=== PATIENT | male | born 1950 | race Caucasian/White ===

== ENCOUNTER 2020-03-04 00:30 | Observation (INO) ==
[2020-03-04] MEDS ORDERED: ACETAMINOPHEN 500 MG TAB PO STA (00:55)
[2020-03-04] MEDS ORDERED: SODIUM CHLORIDE 0.9% 1000ML 1,000 ML IV SCH (01:00)
--- NOTE | 2020-03-04 01:01 | Emergency Department Note ---
History of Present Illness General Chief complaint: Fever Stated complaint: FEVER Time Seen by Provider: 03/04/20 00:54 History of Present Illness Maximum Pain Intensity: 8 This 69-year-old retiree coming from home presents to the ER complaining of fever and abdominal pain for the past day Location: Generalized Quality: Feverish Severity: Moderate Duration: Today Timing: Today Context: was concerned and called EMS Modifying factors: better with Tylenol; worse with activity Patient states he retired and lives at home. No recent travel. 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 Patient denies chest pain, dyspnea, cough, sore throat, loss of taste, loss of smell, vomiting, diarrhea, urinary symptoms. No prior abdominal surgeries. Home Medications Home Medications Medication Instructions Recorded Confirmed Type aripiprazole 2 mg PO DAILY 03/04/20 03/04/20 History atorvastatin [Lipitor] 40 mg PO DAILY 03/04/20 03/04/20 History clonazepam 2 mg PO BID 03/04/20 03/04/20 History donepezil 10 mg PO DAILY 03/04/20 03/04/20 History famotidine 20 mg PO DAILY 03/04/20 03/04/20 History omeprazole 40 mg PO DAILYBB 03/04/20 03/04/20 History quetiapine [Seroquel] 200 mg PO HS 03/04/20 03/04/20 History tamsulosin [Flomax] 0.4 mg PO DAILY 03/04/20 03/04/20 History venlafaxine [Effexor XR] 300 mg PO QAM 03/04/20 03/04/20 History Allergies Allergy/AdvReac Type Severity Reaction Status Date / Time aspirin AdvReac Unknown CONTRAINDICATED Verified 03/04/20 02:45 DUE TO HEMOPHILIA DISORDER Past Med/Surg History Medical History GERD (gastroesophageal reflux disease) Skin cancer Surgical History No pertinent past surgical history Social History Smoking Status: Never smoker Second Hand Exposure: No; Do You Dip or Chew Tobacco: No; Tobacco Cessation Education Requested by Patient: No Hx Alcohol Use: No Hx Substance Use: No Preferred Language: Nepali Multimedia Designer Required: No Beliefs That Will Affect Care: None Current Living Situation: Spouse Other Information That Helps Us Care for You: No Feels Safe at Home: Yes Safety Concerns: Feels Safe At This Time Assistive Devices: Denture - Upper and Denture - Lower Review of Systems A total of 10 systems reviewed and were otherwise negative Physical Exam Vital Signs Vital Signs - 24 hr 03/04/20 00:36 03/04/20 01:28 03/04/20 01:30 Temperature 39.2 C H Temperature Source Oral Pulse Rate 112 H 110 H Pulse Rate from SpO2 Sensor 116 H 109 H Pulse Rhythm Regular Pulse Strength Normal Respiratory Rate 18 Respiratory Effort / Characteristics Non-Labored Respiratory Depth Normal Respiratory Pattern Regular Blood Pressure 122/79 139/78 102/74 Blood Pressure Mean 93 115 87 Blood Pressure Position Lying Pulse Oximetry 97 97 96 Oxygen Delivery Method Room Air Room Air Room Air Sepsis Recent Fever Within 48 Hours Yes Sepsis New/Unexplained Change in Mental Status Yes Sepsis Action Taken by Nursing Physician Notified 03/04/20 02:00 03/04/20 02:41 03/04/20 03:00 Temperature 37.2 C Temperature Source Pulse Rate 96 H 88 Pulse Rate from SpO2 Sensor 100 H 99 H 88 Pulse Rhythm Pulse Strength Respiratory Rate Respiratory Effort / Characteristics Respiratory Depth Respiratory Pattern Blood Pressure 121/64 124/72 101/66 Blood Pressure Mean 71 81 73 Blood Pressure Position Pulse Oximetry 96 92 91 Oxygen Delivery Method Room Air Room Air Sepsis Recent Fever Within 48 Hours Sepsis New/Unexplained Change in Mental Status Sepsis Action Taken by Nursing 03/04/20 03:30 03/04/20 04:00 03/04/20 04:30 Temperature Temperature Source Pulse Rate 88 79 Pulse Rate from SpO2 Sensor 89 94 H 80 Pulse Rhythm Pulse Strength Respiratory Rate Respiratory Effort / Characteristics Respiratory Depth Respiratory Pattern Blood Pressure 109/71 105/68 107/71 Blood Pressure Mean 87 91 82 Blood Pressure Position Pulse Oximetry 93 94 95 Oxygen Delivery Method Room Air Room Air Room Air Sepsis Recent Fever Within 48 Hours Sepsis New/Unexplained Change in Mental Status Sepsis Action Taken by Nursing 03/04/20 04:50 03/04/20 05:00 03/04/20 05:01 Temperature Temperature Source Pulse Rate 75 72 75 Pulse Rate from SpO2 Sensor 75 72 77 Pulse Rhythm Pulse Strength Respiratory Rate 12 15 19 Respiratory Effort / Characteristics Respiratory Depth Respiratory Pattern Blood Pressure 107/62 106/69 Blood Pressure Mean 69 75 Blood Pressure Position Pulse Oximetry 96 93 93 Oxygen Delivery Method Room Air Room Air Sepsis Recent Fever Within 48 Hours Sepsis New/Unexplained Change in Mental Status Sepsis Action Taken by Nursing VITALS: Vitals are noted on the nurse's note and reviewed by myself. Vital signs febrile. GENERAL: White male mildly ill-appearing, in no acute distress, nondiaphoretic, well-developed well-nourished. SKIN: The skin was without rashes, erythema, edema, or bruising. There is no tenting of the skin. Capillary reflex less than 2 seconds. HEAD: Normocephalic atraumatic. EARS: External auditory canals clear, tympanic membranes pearly lee without erythema or effusion bilaterally. EYES: Pupils equal round and reactive to light and accommodation. Conjunctivae without injection, sclerae without icterus. Extraocular movements intact. NOSE: Patent, turbinates without inflammation or discharge. No sinus tenderness. MOUTH: Mucous membranes mildly dry. Pharynx without erythema or exudate. Uvula midline. Airway patent. Tongue does not deviate. NECK: Supple without nuchal rigidity. No lymphadenopathy. No thyromegaly. Cervical spine is nontender. No JVD. HEART: Regular rate and rhythm LUNGS: Clear to auscultation bilaterally without wheezes, rales or rhonchi. No retractions or accessory muscle use. ABDOMEN: Positive bowel sounds x 4. Normal tympanic percussion. Soft, tender to palpation right lower quadrant, without masses or organomegaly. Chua sign negative. No guarding or rebound tenderness. No CVA tenderness MUSCULOSKELETAL: No muscle atrophy, erythema, or edema noted. NEURO: Patient was alert and oriented to person place and time. Normal sensation to light and sharp touch. No focal neurological deficits. Course Administered Medications Acetaminophen (Acetaminophen 325 Mg Tab) 650 mg PO Q4H PRN PRN Reason: pain/fever Stop: 04/03/20 06:32 Last Admin: 03/04/20 20:21 Dose: 650 mg Documented by: [id number] Aripiprazole (Aripiprazole 1 Mg/Ml Oral Soln 150 Ml Btl) 2 mg PO DAILY [facility] Stop: 04/03/20 08:59 Last Admin: 03/04/20 08:35 Dose: 2 mg Documented by: [id number] Atorvastatin Calcium (Atorvastatin 40 Mg Tab) 40 mg PO DAILY [facility] Stop: 04/03/20 08:59 Last Admin: 03/04/20 08:34 Dose: 40 mg Documented by: [id number] Clonazepam (Clonazepam 1 Mg Tab) 2 mg PO BID TIM Stop: 04/03/20 08:59 Last Admin: 03/04/20 21:14 Dose: 2 mg Documented by: [id number] Admin: 03/04/20 08:34 Dose: 2 mg Documented by: [id number] Famotidine (Famotidine 20 Mg Tab) 20 mg PO DAILY TIM Stop: 04/03/20 08:59 Last Admin: 03/04/20 08:35 Dose: 20 mg Documented by: [id number] Fluticasone Propionate (Fluticasone Propionate Na Spr 16 Gm Btl) 2 sprays NA DAILY TIM Stop: 04/03/20 19:14 Last Admin: 03/04/20 21:15 Dose: 2 sprays Documented by: [id number] Pseudoephedrine HCl (Pseudoephedrine Hcl 30 Mg Tab) 60 mg PO Q6H TIM Stop: 03/06/20 19:59 Last Admin: 03/04/20 21:15 Dose: 60 mg Documented by: [id number] Quetiapine Fumarate (Quetiapine Fumarate 200 Mg Tab) 200 mg PO HS TIM Stop: 04/03/20 20:59 Last Admin: 03/04/20 21:14 Dose: 200 mg Documented by: [id number] Tamsulosin HCl (Tamsulosin Hcl 0.4 Mg Cap) 0.4 mg PO DAILY TIM Stop: 04/03/20 08:59 Last Admin: 03/04/20 08:35 Dose: 0.4 mg Documented by: [id number] Venlafaxine HCl (Venlafaxine Hcl Xr 150 Mg Capxr) 300 mg PO QAM TIM Stop: 04/03/20 08:59 Last Admin: 03/04/20 08:34 Dose: 300 mg Documented by: [id number] Discontinued Medications Acetaminophen (Acetaminophen 500 Mg Tab) 1,000 mg PO NOW STA Stop: 03/04/20 00:56 Last Admin: 03/04/20 01:21 Dose: 1,000 mg Documented by: [id number] Sodium Chloride (Nss 1000ml) 1,000 mls @ 999 mls/hr IV .Q1H1M TIM Stop: 03/04/20 02:00 Last Infusion: 03/04/20 02:20 Dose: 0 mls/hr Documented by: [id number] Admin: 03/04/20 01:21 Dose: 999 mls/hr Documented by: [id number] Piperacillin Sod/Tazobactam Sod (Zosyn) 4.5 gm in 120 mls @ 240 mls/hr IV NOW ONE Stop: 03/04/20 03:45 Last Infusion: 03/04/20 04:23 Dose: 0 mls/hr Documented by: [id number] Admin: 03/04/20 03:39 Dose: 240 mls/hr Documented by: [id number] Sodium Chloride (Nss 1000ml) 1,000 mls @ 999 mls/hr IV .Q1H1M ONE Stop: 03/04/20 04:16 Last Infusion: 03/04/20 04:36 Dose: 0 mls/hr Documented by: [id number] Admin: 03/04/20 03:38 Dose: 999 mls/hr Documented by: [id number] Magnesium Sulfate/Dextrose (Magnesium Sulfate / D5w) 1 gm in 100 mls @ 100 mls/hr IV NOW STA Stop: 03/04/20 04:16 Last Infusion: 03/04/20 04:36 Dose: 0 mls/hr Documented by: [id number] Admin: 03/04/20 03:38 Dose: 100 mls/hr Documented by: [id number] Calcium Gluconate 1,000 mg/ (Sodium Chloride) 60 mls @ 240 mls/hr IV NOW STA Stop: 03/04/20 04:46 Last Infusion: 03/04/20 05:21 Dose: 0 mls/hr Documented by: [id number] Admin: 03/04/20 05:08 Dose: 240 mls/hr Documented by: [id number] Parenteral Electrolytes (Normosol-R) 1,000 mls @ 75 mls/hr IV .[id number] ONE Stop: 03/04/20 19:52 Last Infusion: 03/04/20 22:05 Dose: 0 mls/hr Documented by: [id number] Admin: 03/04/20 08:34 Dose: 75 mls/hr Documented by: [id number] Ioversol (Optiray 320 125ml) 93 ml IV ONCE ONE Stop: 03/04/20 02:07 Last Admin: 03/04/20 02:08 Dose: 1 ml Documented by: [id number] Medical Decision Making Medical Records Attestation: I reviewed the patient's medical records. Home Medications Current Medication List: was personally reviewed by me Laboratory Data Attestation: I reviewed the patient's lab results. Result diagrams: 03/04/20 07:43 03/04/20 01:00 Lab Results 03/04/20 03/04/20 03/04/20 Range/Units 01:00 01:00 01:00 WBC 14.85 H (4.8-10.8) K/uL RBC 5.08 (4.7-6.1) M/uL Hgb 12.6 L (14.0-18.0) g/dL Hct 40.4 L (42-52) % MCV 79.5 L (80-100) fL MCH 24.8 L (25-34) pg MCHC 31.2 L (32-36) g/dL RDW Std Deviation 45.6 (36.4-46.3) fL RDW Coeff of Tavo 15.7 H (11.5-14.5) % Plt Count 198 (130-400) K/uL MPV 11.4 H (7.4-10.4) fL Immature Gran % (Auto) 0.3 % Neut % (Auto) 80.9 % Lymph % (Auto) 12.7 % Rusk % (Auto) 5.8 % Eos % (Auto) 0.2 % Baso % (Auto) 0.1 % Neut # (Auto) 12.01 H (1.4-6.5) K/uL Lymph # (Auto) 1.88 (1.2-3.4) K/uL Rusk # (Auto) 0.86 H (0.11-0.59) K/uL Eos # (Auto) 0.03 (0-0.5) K/uL Baso # (Auto) 0.02 (0-0.2) K/uL Immature Gran # (Auto) 0.05 H (0.00-0.02) K/uL PT 10.7 (9.0-12.0) Seconds INR 1.0 (0.9-1.1) APTT 43.3 H (21.0-31.0) Seconds PTT Ratio 1.6 Sodium 138 (136-145) mmol/L Potassium 4.0 (3.5-5.1) mmol/L Chloride 105 (98-107) mmol/L Carbon Dioxide 27 (21-32) mmol/L Anion Gap 6.0 (3-11) BUN 10 (7-18) mg/dl Creatinine 1.33 (0.6-1.4) mg/dl Est Cr Clr Drug Dosing 59.7 ml/min Est GFR ( Amer) 63.2 Est GFR (Non-Af Amer) 54.5 BUN/Creatinine Ratio 7.6 L (10-20) Glucose 84 (70-99) mg/dl Lactate (0.4-2.0) mmol/L Calcium 8.2 L (8.5-10.1) mg/dl Magnesium 1.7 L (1.8-2.4) mg/dl Total Bilirubin 0.6 (0.2-1) mg/dl AST 17 (15-37) U/L ALT 21 (12-78) U/L Alkaline Phosphatase 132 H (45-117) U/L Total Creatine Kinase 83 (39-308) U/L Troponin I < 0.015 (0-0.045) ng/ml Total Protein 7.1 (6.4-8.2) gm/dl Albumin 3.5 (3.4-5.0) gm/dl Globulin 3.6 (2.5-4.0) gm/dl Albumin/Globulin Ratio 1.0 (0.9-2) Procalcitonin (0-0.5) ng/ml Urine Color Urine Appearance (Clear) Urine pH (4.5-7.5) Ur Specific Bruno (1.000-1.030) Urine Protein (Negative) Urine Glucose (UA) (Negative) Urine Ketones (Negative) Urine Blood (Negative) Urine Nitrite (Negative) Urine Bilirubin (Negative) Urine Urobilinogen (Negative) Ur Leukocyte Esterase (Negative) Lyme Disease IgG Ab (Negative) Lyme Disease IgM Ab (Negative) COVID-19 Eval Order COVID-19 PCR (Negative) Influ A Molecular Assay (Negative) Influ B Molecular Assay (Negative) 03/04/20 03/04/20 03/04/20 Range/Units 01:00 01:06 01:06 WBC (4.8-10.8) K/uL RBC (4.7-6.1) M/uL Hgb (14.0-18.0) g/dL Hct (42-52) % MCV (80-100) fL MCH (25-34) pg MCHC (32-36) g/dL RDW Std Deviation (36.4-46.3) fL RDW Coeff of Tavo (11.5-14.5) % Plt Count (130-400) K/uL MPV (7.4-10.4) fL Immature Gran % (Auto) % Neut % (Auto) % Lymph % (Auto) % Rusk % (Auto) % Eos % (Auto) % Baso % (Auto) % Neut # (Auto) (1.4-6.5) K/uL Lymph # (Auto) (1.2-3.4) K/uL Rusk # (Auto) (0.11-0.59) K/uL Eos # (Auto) (0-0.5) K/uL Baso # (Auto) (0-0.2) K/uL Immature Gran # (Auto) (0.00-0.02) K/uL PT (9.0-12.0) Seconds INR (0.9-1.1) APTT (21.0-31.0) Seconds PTT Ratio Sodium (136-145) mmol/L Potassium (3.5-5.1) mmol/L Chloride (98-107) mmol/L Carbon Dioxide (21-32) mmol/L Anion Gap (3-11) BUN (7-18) mg/dl Creatinine (0.6-1.4) mg/dl Est Cr Clr Drug Dosing ml/min Est GFR ( Amer) Est GFR (Non-Af Amer) BUN/Creatinine Ratio (10-20) Glucose (70-99) mg/dl Lactate (0.4-2.0) mmol/L Calcium (8.5-10.1) mg/dl Magnesium (1.8-2.4) mg/dl Total Bilirubin (0.2-1) mg/dl AST (15-37) U/L ALT (12-78) U/L Alkaline Phosphatase (45-117) U/L Total Creatine Kinase (39-308) U/L Troponin I (0-0.045) ng/ml Total Protein (6.4-8.2) gm/dl Albumin (3.4-5.0) gm/dl Globulin (2.5-4.0) gm/dl Albumin/Globulin Ratio (0.9-2) Procalcitonin 0.21 (0-0.5) ng/ml Urine Color Urine Appearance (Clear) Urine pH (4.5-7.5) Ur Specific Bruno (1.000-1.030) Urine Protein (Negative) Urine Glucose (UA) (Negative) Urine Ketones (Negative) Urine Blood (Negative) Urine Nitrite (Negative) Urine Bilirubin (Negative) Urine Urobilinogen (Negative) Ur Leukocyte Esterase (Negative) Lyme Disease IgG Ab Negative (Negative) Lyme Disease IgM Ab Negative (Negative) COVID-19 Eval Order Covid19 Done at [facility] COVID-19 PCR (Negative) Influ A Molecular Assay Negative (Negative) Influ B Molecular Assay Negative (Negative) 03/04/20 03/04/20 03/04/20 Range/Units 01:06 01:25 02:46 WBC (4.8-10.8) K/uL RBC (4.7-6.1) M/uL Hgb (14.0-18.0) g/dL Hct (42-52) % MCV (80-100) fL MCH (25-34) pg MCHC (32-36) g/dL RDW Std Deviation (36.4-46.3) fL RDW Coeff of Tavo (11.5-14.5) % Plt Count (130-400) K/uL MPV (7.4-10.4) fL Immature Gran % (Auto) % Neut % (Auto) % Lymph % (Auto) % Rusk % (Auto) % Eos % (Auto) % Baso % (Auto) % Neut # (Auto) (1.4-6.5) K/uL Lymph # (Auto) (1.2-3.4) K/uL Rusk # (Auto) (0.11-0.59) K/uL Eos # (Auto) (0-0.5) K/uL Baso # (Auto) (0-0.2) K/uL Immature Gran # (Auto) (0.00-0.02) K/uL PT (9.0-12.0) Seconds INR (0.9-1.1) APTT (21.0-31.0) Seconds PTT Ratio Sodium (136-145) mmol/L Potassium (3.5-5.1) mmol/L Chloride (98-107) mmol/L Carbon Dioxide (21-32) mmol/L Anion Gap (3-11) BUN (7-18) mg/dl Creatinine (0.6-1.4) mg/dl Est Cr Clr Drug Dosing ml/min Est GFR ( Amer) Est GFR (Non-Af Amer) BUN/Creatinine Ratio (10-20) Glucose (70-99) mg/dl Lactate 1.7 (0.4-2.0) mmol/L Calcium (8.5-10.1) mg/dl Magnesium (1.8-2.4) mg/dl Total Bilirubin (0.2-1) mg/dl AST (15-37) U/L ALT (12-78) U/L Alkaline Phosphatase (45-117) U/L Total Creatine Kinase (39-308) U/L Troponin I (0-0.045) ng/ml Total Protein (6.4-8.2) gm/dl Albumin (3.4-5.0) gm/dl Globulin (2.5-4.0) gm/dl Albumin/Globulin Ratio (0.9-2) Procalcitonin (0-0.5) ng/ml Urine Color Yellow Urine Appearance Clear (Clear) Urine pH 5.0 (4.5-7.5) Ur Specific Bruno 1.026 (1.000-1.030) Urine Protein Negative (Negative) Urine Glucose (UA) 2+ H (Negative) Urine Ketones Trace H (Negative) Urine Blood Negative (Negative) Urine Nitrite Negative (Negative) Urine Bilirubin Negative (Negative) Urine Urobilinogen Negative (Negative) Ur Leukocyte Esterase Negative (Negative) Lyme Disease IgG Ab (Negative) Lyme Disease IgM Ab (Negative) COVID-19 Eval Order COVID-19 PCR NEGATIVE (Negative) Influ A Molecular Assay (Negative) Influ B Molecular Assay (Negative) Imaging Data Attestation: I personally reviewed and interpreted this imaging study as follows: MDM Narrative Prior records/ancillary studies reviewed. Triage Nursing notes reviewed. Additional history obtained from nursing. The patient's history was concerning for fever and abdominal pain. Differential diagnosis: Etiologies such as sepsis, UTI, pneumonia, metabolic, electrolyte abnormal ities, cardiac sources, intracerebral event, toxicologic, neurologic, as well as others were entertained. Physical examination: As above. Pertinent findings were fever. Vital signs reviewed and revealed febrile. ER treatment provided: IV fluid resuscitation with Normal saline solution, 1000 mL bolus. Blood and urine cultures Antibiotics: Zosyn Magnesium, Tylenol An order was placed for continuous cardiac monitoring. The monitor shows a rate of 60-1 20 with a sinus rhythm. On reassessment the patient vital signs improved. Diagnostics interpretation by me: ECG: Normal sinus, normal intervals, no acute ST-T wave changes. Impression normal sinus rhythm interpreted myself EKG ordered for sepsis I think arrhythmia is unlikely. EKG shows normal sinus rhythm with no interval abnormalities such as QT prolongation or WPW. There are no findings to suggest Brugada syndrome. Cardiac monitoring in the emergency department reveals no tachycardic or bradycardic dysrhythmia. Hypertrophic cardiomyopathy was considered but there are no clear historical elements pointing toward this. EKG is not suggestive. The QRS voltage is not extremely large and there are no suggestive Q waves. The labs revealed leukocytosis on CBC. Chemistry panel revealed hypomagnesia and this was replaced. LFTs revealed. Cardiac enzymes were negative. Serum Lactate measurement was 1.7 Blood and urine cultures are pending. Negative flu, negative Covid Imaging studies: Chest xray revealed with no acute consolidation, pneumothorax or free air mitral rotation CT ABDOMEN & PELVIS With Contrast: Liver, spleen, pancreas and gallbladder appear normal. Stomach, small bowel, colon and appendix appear normal. Adrenals kidneys ureters and bladder appear normal. Prostate appears normal. Vascular structures appear normal. There is no free peritoneal air or fluid. Impression: No acute findings Radiologist: Ravinder Millan MD Consultation: A consultation was placed with Dr Golden, hospitalist. The case was discussed and diagnostics were reviewed. The patient was evaluated in the ER for further treatment. Exam and history seem consistent with fever of unclear etiology. Patient was st arted on antibiotics. Medicine was consulted. Patient will be admitted. The chart was completed utilizing Inbox voice recognition software. Grammatical errors, random word insertions, pronoun errors, and incomplete sentences are an occassional consequence of this system due to software limitations, ambient noise, and hardware issues. Any formal questions or concerns about the content, text, or information contained within the body of this dictation should be directly addressed to the physician hygiene assistant for clarification. Impression & Plan Sepsis Discharge Plan Visit Data Chief Complaint: Fever Stated Complaint: FEVER ED Provider: Yesenia Velasco ED Midlevel Provider: Cherelle Campbell Discharge Problem: Sepsis Patient Disposition: Admitted As Inpatient Condition: Good Discharge Instructions Interventions: ED Discharge Assessment Last Done: 03/04/20 06:08 Discharge Problem: Sepsis Qualifiers: Sepsis type: sepsis due to unspecified organism Sepsis acute organ dysfunction status: unspecified Qualified Code(s): A41.9 - Sepsis, unspecified organism
[2020-03-04 01:45] LABS: Basophils # (auto) 0.02 K/uL (0-0.2); Basophils % (auto) 0.1 %; Eosinophils # (auto) 0.03 K/uL (0-0.5); Eosinophils % (auto) 0.2 %; Hematocrit (blood only) 40.4 % (42-52); Hemoglobin 12.6 g/dL (14.0-18.0); Immature Granulocytes # (auto) 0.05 K/uL (0.00-0.02); Immature Granulocytes % (auto) 0.3 %; Lymphocytes # (auto) 1.88 K/uL (1.2-3.4); Lymphocytes % (auto) 12.7 %; Mean Corpuscular Hemoglobin 24.8 pg (25-34); Mean Corpuscular Hgb Conc 31.2 g/dL (32-36); Mean Corpuscular Volume 79.5 fL (80-100); Mean Platelet Volume 11.4 fL (7.4-10.4); Monocytes # (auto) 0.86 K/uL (0.11-0.59); Monocytes % (auto) 5.8 %; Neutrophils # (auto) 12.01 K/uL (1.4-6.5); Neutrophils % (auto) 80.9 %; Platelet Count 198 K/uL (130-400); RDW Coefficient of Variation 15.7 % (11.5-14.5); RDW Standard Deviation 45.6 fL (36.4-46.3); Red Blood Count 5.08 M/uL (4.7-6.1); White Blood Count 14.85 K/uL (4.8-10.8)
[2020-03-04 01:48] LABS: Appearance Urine Clear (Clear); Bilirubin Urine Negative (Negative); Blood Urine Negative (Negative); Color Urine Yellow; Glucose Urine UA 2+ (Negative); Ketones Urine Trace (Negative); Leukocyte Esterase Urine Negative (Negative); Nitrite Urine Negative (Negative); Protein Urine Negative (Negative); Specific Gravity Urine 1.026 (1.000-1.030); Urobilinogen Urine Negative (Negative)
[2020-03-04 01:56] LABS: Partial Thromboplastin Ratio 1.6; Partial Thromboplastin Time 43.3 Seconds (21.0-31.0); Prothrombin Time 10.7 Seconds (9.0-12.0)
[2020-03-04 02:03] LABS: Alanine Aminotransferase 21 U/L (12-78); Albumin Level 3.5 gm/dl (3.4-5.0); Aspartate Aminotransferase 17 U/L (15-37); BUN Creatinine Ratio 7.6 (10-20); Blood Urea Nitrogen 10 mg/dl (7-18); Calcium 8.2 mg/dl (8.5-10.1); Carbon Dioxide 27 mmol/L (21-32); Chloride 105 mmol/L (98-107); Creatinine Clr Calc Pharmacy 59.7 ml/min; Est GFR (African American) 63.2; Est GFR (Non-African American) 54.5; Glucose 84 mg/dl (70-99); Magnesium 1.7 mg/dl (1.8-2.4); Sodium 138 mmol/L (136-145)
[2020-03-04] MEDS ORDERED: OPTIRAY 320 125ml IV ONE (02:06)
[2020-03-04 02:08] LABS: Alkaline Phosphatase 132 U/L (45-117); Bilirubin,Total 0.6 mg/dl (0.2-1); Globulin 3.6 gm/dl (2.5-4.0); Total Protein 7.1 gm/dl (6.4-8.2); Troponin I < 0.015 ng/ml (0-0.045)
[2020-03-04 02:12] LABS: Influenza A virus by PCR Negative (Negative); Influenza B virus by PCR Negative (Negative)
[2020-03-04] MEDS ORDERED: PIPERACILL/TAZOBAC CONSULT ACTIVE PRN (03:16)
[2020-03-04] MEDS ORDERED: SODIUM CHLORIDE 0.9% 1000ML 1,000 ML IV ONE (03:16)
[2020-03-04] MEDS ORDERED: PIPERACILLIN/TAZOBACTAM 4.5 GM/120 ML BAG IV ONE (03:16)
[2020-03-04] MEDS ORDERED: MAGNESIUM SULFATE / D5W 1 GM/100 ML BAG IV STA (03:17)
[2020-03-04 03:42] LABS: Creatine Kinase 83 U/L (39-308)
--- NOTE | 2020-03-04 03:43 | Emergency Department Note ---
ED Visit Note I saw this patient in conjunction with Nargis Campbell PA-C. I agree with her decision making and treatment plan. . : Sepsis Qualifiers: Sepsis type: sepsis due to unspecified organism Sepsis acute organ dysfunction status: unspecified Qualified Code(s): A41.9 - Sepsis, unspecified organism
[2020-03-04 04:27] LABS: Procalcitonin 0.21 ng/ml (0-0.5)
[2020-03-04] MEDS ORDERED: CALCIUM GLUCONATE 10% 1,000 MG in SODIUM CHLORIDE 0.9% 50 ML IV STA (04:32)
[2020-03-04 04:34] LABS: Lyme Ab IgG w/WB Rflx Negative (Negative); Lyme Ab IgM w/WB Rflx Negative (Negative)
--- NOTE | 2020-03-04 04:43 | History & Physical Report ---
Date of Service March 04, 2020 Assessment & Plan (1) Sepsis: Admission and Anticipated Discharge Date Admission Date: Rule out C. difficile diarrhea as source given recent antibiotic course for cat scratch injury New onset anemia ? 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 difficile Oral vancomycin if stool C. difficile positive IVF Anemia work-up, transfuse PRBC if hemoglobin less than 7 and or for symptomatic anemia (Patient requesting providers to contact [facility] hemophilia clinic for any hematologic concerns per patient. Dr. Gautam/Ms. Jane Ruiz, RN thru [phone].) Check hemoglobin A1c PT OT eval DVT prophylaxis. SCDs Re: Hemophilia A Full code as per Patient requesting updates providers. [facility], contact #[phone]. Text document was generated using [email or web address] voice recognition software. It may contain grammatical or spelling errors. Kindly contact undersigned for clarification of any documentation item in question. History of Present Illness Chief Complaint: Confusion, nausea vomiting diarrhea as per records Primary Care Provider: Hernandez Pritchard PA-C History obtained from patient, family, and records. Patient is a reliable historian. Medical history significant for hypertension, hyperlipidemia, hemophilia A, hx HCV as per records, dementia, BPH status post surgery, skin cancer status post surgery, past tobacco abuse. Patient seen at [facility] ER last week for cat scratches sustained after patient attempted to break up a fight among their pet cats as per account. Puncture wounds and bruising noted on patient's extremities as per . Patient had cat bite injury as per ER documentation which patient disputes. She insists patient injury was solely cat scratches. Patient prescribed Augmentin course. Yesterday patient had watery diarrhea symptoms associated with nausea, vomiting. Patient noted to be febrile and little sleepy upon patient's return to home from work. Transient disorientation which slowly improved as per . Achy headache symptoms. Usual clear prostatic discharge for a few months now as per patient . Patient denies black/bloody stools, joint swelling. At the ER, patient received Zosyn for sepsis. Medical History as above Surgical History : Urologic procedures, lymph node biopsy, skin cancer surgery with graft reconstruction, dental surgery Family History : Hemophilia, prostate cancer, stomach cancer Personal/Social history : Past tobacco abuse, no EtOH intake, retired from insurance work Allergies Allergy/AdvReac Type Severity Reaction Status Date / Time aspirin AdvReac Unknown CONTRAINDICATED Verified 03/04/20 02:45 DUE TO HEMOPHILIA DISORDER Home Medications Home Medications Medication Instructions Recorded Confirmed Type aripiprazole 2 mg PO DAILY 03/04/20 03/04/20 History atorvastatin [Lipitor] 40 mg PO DAILY 03/04/20 03/04/20 History clonazepam 2 mg PO BID 03/04/20 03/04/20 History donepezil 10 mg PO DAILY 03/04/20 03/04/20 History famotidine 20 mg PO DAILY 03/04/20 03/04/20 History omeprazole 40 mg PO DAILYBB 03/04/20 03/04/20 History quetiapine [Seroquel] 200 mg PO HS 03/04/20 03/04/20 History tamsulosin [Flomax] 0.4 mg PO DAILY 03/04/20 03/04/20 History venlafaxine [Effexor XR] 300 mg PO QAM 03/04/20 03/04/20 History Past Med/Surg History Medical History GERD (gastroesophageal reflux disease) Skin cancer Surgical History No pertinent past surgical history Social History Smoking Status: Never smoker Second Hand Exposure: No; Do You Dip or Chew Tobacco: No; Tobacco Cessation Education Requested by Patient: No Hx Alcohol Use: No Hx Substance Use: No Preferred Language: Persian 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 Beliefs That Will Affect Care: None Current Living Situation: Spouse Other Information That Helps Us Care for You: No Feels Safe at Home: Yes Safety Concerns: Feels Safe At This Time Assistive Devices: Denture - Upper and Denture - Lower Review of Systems Review of Systems: As per HPI, all 10 systems reviewed, all other ROS negative Physical Exam Physical Exam: GENERAL: Pleasant, comfortable, no respiratory distress SKIN: Pallor, warm, ecchymosis on the extremities HEENT: Sparse hair, pale palpebral conjunctivae, no ptosis, dry buccal mucosa NECK : Supple, no tenderness CHEST : CTA, no tenderness HEART : RRR, no obvious murmurs ABDOMEN: Some distention, nontender EXTREMITIES : No LE swelling/tenderness, no other conspicuous deformities noted NEUROLOGIC : Coherent, no facial asymmetry, no other gross focality Results & Data Results & Data ([facility]) Vital Signs (Past 12 Hours) Vital Signs Temp Pulse Resp BP Pulse Ox 03/04/20 03:30 88 109/71 93 03/04/20 03:00 88 101/66 91 03/04/20 02:41 37.2 C 96 H 124/72 92 03/04/20 02:00 121/64 96 03/04/20 01:30 110 H 102/74 96 03/04/20 01:28 139/78 97 03/04/20 00:36 39.2 C H 112 H 18 122/79 97 Laboratory Results Laboratory Results WBC 14.85 K/uL (4.8-10.8) H 03/04/20 01:00 RBC 5.08 M/uL (4.7-6.1) 03/04/20 01:00 Hgb 12.6 g/dL (14.0-18.0) L 03/04/20 01:00 Hct 40.4 % (42-52) L 03/04/20 01:00 MCV 79.5 fL (80-100) L 03/04/20 01:00 MCH 24.8 pg (25-34) L 03/04/20 01:00 MCHC 31.2 g/dL (32-36) L 03/04/20 01:00 RDW Std Deviation 45.6 fL (36.4-46.3) 03/04/20 01:00 RDW Coeff of Tavo 15.7 % (11.5-14.5) H 03/04/20 01:00 Plt Count 198 K/uL (130-400) 03/04/20 01:00 MPV 11.4 fL (7.4-10.4) H 03/04/20 01:00 Immature Gran % (Auto) 0.3 % 03/04/20 01:00 Neut % (Auto) 80.9 % 03/04/20 01:00 Lymph % (Auto) 12.7 % 03/04/20 01:00 [place] % (Auto) 5.8 % 03/04/20 01:00 Eos % (Auto) 0.2 % 03/04/20 01:00 Baso % (Auto) 0.1 % 03/04/20 01:00 Neut # (Auto) 12.01 K/uL (1.4-6.5) H 03/04/20 01:00 Lymph # (Auto) 1.88 K/uL (1.2-3.4) 03/04/20 01:00 [place] # (Auto) 0.86 K/uL (0.11-0.59) H 03/04/20 01:00 Eos # (Auto) 0.03 K/uL (0-0.5) 03/04/20 01:00 Baso # (Auto) 0.02 K/uL (0-0.2) 03/04/20 01:00 Immature Gran # (Auto) 0.05 K/uL (0.00-0.02) H 03/04/20 01:00 PT 10.7 Seconds (9.0-12.0) 03/04/20 01:00 INR 1.0 (0.9-1.1) 03/04/20 01:00 APTT 43.3 Seconds (21.0-31.0) H 03/04/20 01:00 PTT Ratio 1.6 03/04/20 01:00 Sodium 138 mmol/L (136-145) 03/04/20 01:00 Potassium 4.0 mmol/L (3.5-5.1) 03/04/20 01:00 Chloride 105 mmol/L (98-107) 03/04/20 01:00 Carbon Dioxide 27 mmol/L (21-32) 03/04/20 01:00 Anion Gap 6.0 (3-11) 03/04/20 01:00 BUN 10 mg/dl (7-18) 03/04/20 01:00 Creatinine 1.33 mg/dl (0.6-1.4) 03/04/20 01:00 Est Cr Clr Drug Dosing 59.7 ml/min 03/04/20 01:00 Est GFR ( Amer) 63.2 03/04/20 01:00 Est GFR (Non-Af Amer) 54.5 03/04/20 01:00 BUN/Creatinine Ratio 7.6 (10-20) L 03/04/20 01:00 Glucose 84 mg/dl (70-99) 03/04/20 01:00 Lactate 1.7 mmol/L (0.4-2.0) 03/04/20 02:46 Calcium 8.2 mg/dl (8.5-10.1) L 03/04/20 01:00 Magnesium 1.7 mg/dl (1.8-2.4) L 03/04/20 01:00 Total Bilirubin 0.6 mg/dl (0.2-1) 03/04/20 01:00 AST 17 U/L (15-37) 03/04/20 01:00 ALT 21 U/L (12-78) 03/04/20 01:00 Alkaline Phosphatase 132 U/L (45-117) H 03/04/20 01:00 Total Creatine Kinase 83 U/L (39-308) 03/04/20 01:00 Troponin I < 0.015 ng/ml (0-0.045) 03/04/20 01:00 Total Protein 7.1 gm/dl (6.4-8.2) 03/04/20 01:00 Albumin 3.5 gm/dl (3.4-5.0) 03/04/20 01:00 Globulin 3.6 gm/dl (2.5-4.0) 03/04/20 01:00 Albumin/Globulin Ratio 1.0 (0.9-2) 03/04/20 01:00 Procalcitonin 0.21 ng/ml (0-0.5) 03/04/20 01:00 Urine Color Yellow 03/04/20 01:25 Urine Appearance Clear (Clear) 03/04/20 01:25 Urine pH 5.0 (4.5-7.5) 03/04/20 01:25 Ur Specific [place] 1.026 (1.000-1.030) 03/04/20 01:25 Urine Protein Negative (Negative) 03/04/20 01:25 Urine Glucose (UA) 2+ (Negative) H 03/04/20 01:25 Urine Ketones Trace (Negative) H 03/04/20 01:25 Urine Blood Negative (Negative) 03/04/20 01:25 Urine Nitrite Negative (Negative) 03/04/20 01:25 Urine Bilirubin Negative (Negative) 03/04/20 01:25 Urine Urobilinogen Negative (Negative) 03/04/20 01:25 Ur Leukocyte Esterase Negative (Negative) 03/04/20 01:25 Lyme Disease IgG Ab Negative (Negative) 03/04/20 01:00 Lyme Disease IgM Ab Negative (Negative) 03/04/20 01:00 COVID-19 Eval Order Covid19 Done at [facility] 03/04/20 01:06 COVID-19 PCR NEGATIVE (Negative) 03/04/20 01:06 Influ A Molecular Assay Negative (Negative) 03/04/20 01:06 Influ B Molecular Assay Negative (Negative) 03/04/20 01:[address] head initial read: No ICH, mass-effect or edema. No evidence of acute cortical stroke. CT abdomen pelvis initial read: No acute findings Chest x-ray as per my interpretation atelectasis EKG as per my interpretation :Rate 115, sinus tachycardia, LAD, LAFB, inferior infarct, no ischemia (1) Sepsis Sepsis acute organ dysfunction status: unspecified Sepsis type: sepsis due to unspecified organism Qualified Code(s): A41.9 - Sepsis, unspecified organism
[2020-03-04] MEDS ORDERED: NORMOSOL-R 1,000 ML IV ONE (06:33)
[2020-03-04] MEDS ORDERED: traMADol HCL 50 MG TABLET PO PRN (06:33)
[2020-03-04] MEDS ORDERED: ACETAMINOPHEN 325 MG TAB PO PRN (06:33)
[2020-03-04] MEDS ORDERED: PROMETHAZINE HCL 6.25 MG in SODIUM CHLORIDE 0.9% 50 ML IV PRN (06:33)
--- NOTE | 2020-03-04 07:26 | CT Scan Report ---
CT head/brain wo con CLINICAL HISTORY: Headache COMPARISON STUDY: No previous studies for comparison. TECHNIQUE: Axial CT of the brain is performed from the vertex to the skull base. IV contrast was not administered for this examination. A dose lowering technique was utilized adhering to the principles of ALARA. CT DOSE: 614.27 mGy.cm FINDINGS: No intra or extra-axial mass lesions are visualized. There is no CT evidence of acute cortical infarc tion. There is no evidence of midline shift. There is no acute hemorrhage. No calvarial fractures ar e visualized. There are patchy white matter hypodensities likely on a small vessel basis. There is no evidence of pathologic ventricular dilatation. There is no evidence of acute sinusitis. There is minor left back to sinus mucosal thickening. The dural venous sinuses appear enhanced secondary to a contrast bolus the patient received earlier i n the day. IMPRESSION: No acute intracranial findings ACT 112: Negative or not required by law. Electronically signed by: Dom Vann M.D. 03/04/2020 7:25 AM
--- NOTE | 2020-03-04 07:49 | CT Scan Report ---
CT abd pelvis IV con only CLINICAL HISTORY: lower abd pain, fever COMPARISON STUDY: None. TECHNIQUE: The patient was scanned in a dynamic helical fashion during intravenous administration of 93 cc of Optiray 320 A dose lowering technique was utilized adhering to the principles of ALARA. CT DOSE: 416.26 mGy.cm FINDINGS: Lower chest: There is a 5 mm left lower lobe pulmonary nodule. There is also a 3 mm left lower lobe p ulmonary nodule. In a low risk patient, no further follow-up is indicated. Increased basilar markings are likely atelectatic. Liver: The contrast-enhanced liver is normal in size, contour, and attenuation. There is no intrahepa tic biliary ductal dilatation. The hepatic veins and portal veins are patent. Gallbladder: Unremarkable. Spleen: Normal in size and attenuation. Pancreas: Unremarkable. Adrenal glands: Unremarkable. Kidneys: There is symmetric renal cortical enhancement. The kidneys are normal in size without hydron ephrosis. Bowel: There are no transition zones indicate bowel obstruction. The appendix appears normal. There i s no evidence of acute diverticulitis. Peritoneum: There is no intraperitoneal free air or abdominal ascites. There is a tiny fat-containing umbilical hernia. Vasculature: The abdominal aorta is normal in course and caliber. Adenopathy: None. Pelvic viscera: The bladder, and pelvic viscera are unremarkable. Skeletal structures: No destructive osseous lesions are seen. IMPRESSION: 1. No evidence of bowel obstruction. No evidence of free air 2. Normal appendix. No evidence of acute diverticulitis. 3. Left lower lobe of the nodules measuring up to 5 mm in diameter. In a low-risk patient, no further follow-up is indicated. ACT 112: Negative or not required by law. Electronically signed by: Dom Vann M.D. 03/04/2020 7:48 AM
[2020-03-04 07:57] LABS: Hematocrit (blood only) 35.1 % (42-52); Hemoglobin 10.9 g/dL (14.0-18.0); Reticulocyte % 1.3 % (0.5-2.0); Reticulocytes # 0.06 10^6/uL (0.02-0.10)
--- NOTE | 2020-03-04 08:17 | XRay Report ---
XR chest 1V portable CLINICAL HISTORY: SEPSIS COMPARISON STUDY: No previous studies for comparison. FINDINGS: There is no pneumothorax or pleural effusion. There is mild left lower lung airspace opacit y. There is no evidence for pulmonary edema. Cardiomediastinal silhouette is normal. IMPRESSION: Mild left basilar opacity. Atelectasis is favored although an infectious process could a ppear similar. ACT 112: Negative or not required by law. Electronically signed by: Michael Jarquin M.D. 03/04/2020 8:16 AM
[2020-03-04 08:34] LABS: Ferritin 19.6 ng/ml (8-388)
[2020-03-04] MEDS: clonazePAM 1 MG TAB PO SCH ×2 (08:34→21:14)
[2020-03-04] MEDS: ATORVASTATIN 40 MG TAB PO SCH (08:34)
[2020-03-04] MEDS: VENLAFAXINE HCL XR 150 MG CAPXR PO SCH (08:34)
[2020-03-04] MEDS: ARIPIprazole 1 MG/ML ORAL SOLN 150 ML BTL PO SCH (08:35)
[2020-03-04] MEDS: FAMOTIDINE 20 MG TAB PO SCH (08:35)
[2020-03-04] MEDS: TAMSULOSIN HCL 0.4 MG CAP PO SCH (08:35)
--- NOTE | 2020-03-04 09:41 | Electrocardiogram Report ---
Test Reason : Blood Pressure : / mmHG Vent. Rate : 115 BPM Atrial Rate : 115 BPM P-R Int : 182 ms QRS Dur : 064 ms QT Int : 298 ms P-R-T Axes : 041 005 067 degrees QTc Int : 412 ms Sinus tachycardia Otherwise normal ECG No previous ECGs available Confirmed by Gualberto Borrego ([id number]) on 03/04/2020 9:41:09 AM Referred By: REFERRED SELF Confirmed By:Gualberto Borrego
[2020-03-04 09:51] LABS: Folate (Folic Acid) 3.61 ng/ml (>5.38)
--- NOTE | 2020-03-04 17:58 | Hospitalist Progress Note ---
Date of Service March 04, 2020 Assessment & Plan (1) Fever: Uncertain etiology-less likely acute bacterial sinusitis as patient just completed a 10 day course of Augmentin. C-diff was considered but patient is without diarrhea, significant abdominal pain and is eating regular food. Viral etiology considered including flu-check PCR. Covid screen was negative. Fever has not returned off abx-no evidence of meningitis, back pain, or other clear source and he is not septic and is clinically improved. Hold off on any antibiotics at this time and monitor. Will treat symptoms with Flonase nasal spray and Sudafed decongestant. (2) Sinus pain: Treat supportively with Sudafed and Flonase for now. Continue to hydrate. IVF will be stopped this evening. (3) Pulmonary nodule: Follow with outpatient CT per guidelines. (4) Hemophilia A: No acute bleeding at this time and none recently reported. Slight dilutional anemia noted on labwork. Trend in am. (5) Major depression: Cont home medications. 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 Georgie Bradford DO [facility] Hospitalist Admission and Anticipated Discharge Date Admission Date: March 04, 2020 Subjective 69 yo M with h/o depression on mood stabilizing medications presented with an acute illness for the last week. He reports getting scratched by a cat who he pulled out of a cat fight two weeks ago. He was placed on Augmentin for two weeks for a scratch on his arm, which he reports is not painful and the injury is resolved now. He completed the Augmentin on Fri, 02/27. However, on 03/01 he developed a fever and diarrhea. He states the diarrhea resolved and his BM yesterday was more formed. ROS reveals poor appetite and nausea that have resolved as he is now asking for a regular diet. ROS reveals a frontal GRIMES, and physical exam reveals right maxillary sinus pressure to palpation and a right middle ear effusion that appears suppurative. Pt denies a sore throat, cough, SOB, CP, abdominal pain, UTI symptoms or blood in his stool. He does report a high fever to 103F last night, present on arrival to the ER. He received zosyn overnight x 1 dose and has remained afebrile despite no continuation of abx. He remains on some IVF and reports that this has made him feel better because he was dehydrated. He denies any neck stiffness or pain, photophobia, or back pain. He denies any recent travel, sick contacts, changes in medications or rashes. He is mentating normally but has a flat depressed affect, which is likely his baseline. He is disabled but expresses dissatisfaction with this. Review of Systems Review of Systems: All systems reviewed & are unremarkable except as noted in Subjective Physical Exam Physical Exam: CONSTITUTIONAL: WNWD, vitals as above, generally well- appearing EYES: PERRL, normal conjunctivae, no scleral icterus ENT: external ear and nose normal, oropharynx clear, normal tonsils without exudates, no cervical or submandibular LAD, no LAD around his ears. Suppurative middle ear effusion on the right, +maxillary sinus pressure on the right. NECK: trachea midline, no lymphadenopathy RESPIRATORY: clear to auscultation bilaterally, no crackles, rales or wheezes, normal respiratory effort CARDIOVASCULAR: regular rate and rhythm, S1 and 2 heard without murmurs, gallops or rubs, no JVD, no peripheral edema GASTROINTESTINAL: soft, mild periumbilical tenderness to palpation, nondistended, no guarding MUSCULOSKELETAL: strength 5/5 throughout, head is normocephalic and atraumatic SKIN: warm and dry NEUROLOGIC: CN 2-12 grossly intact, no sensory deficit, normal cognition, normal speech, no tremor PSYCHIATRIC: alert cooperative and oriented to person, place and time. Flat depressed affect generally. Results & Data Results & Data ([facility]) Vital Signs (Past 12 Hours) Vital Signs Temp Pulse Resp BP BP Pulse Ox 03/04/20 15:55 36.5 C 64 18 125/74 98 03/04/20 08:21 36.5 C 65 18 106/66 100 03/04/20 06:24 36.6 C 84 18 111/66 98 03/04/20 06:00 117/69 95 Laboratory Results Short CBC 03/04/20 03/04/20 Range/Units 01:00 07:43 WBC 14.85 H (4.8-10.8) K/uL Hgb 12.6 L 10.9 L (14.0-18.0) g/dL Hct 40.4 L 35.1 L (42-52) % Plt Count 198 (130-400) K/uL BMP 03/04/20 01:00 Sodium 138 Potassium 4.0 Chloride 105 Carbon Dioxide 27 BUN 10 Creatinine 1.33 Glucose 84 Calcium 8.2 L Cardiac Enzymes 03/04/20 Range/Units 01:00 Total Creatine Kinase 83 (39-308) U/L Troponin I < 0.015 (0-0.045) ng/ml Liver Function 03/04/20 Range/Units 01:00 Total Bilirubin 0.6 (0.2-1) mg/dl AST 17 (15-37) U/L ALT 21 (12-78) U/L Alkaline Phosphatase 132 H (45-117) U/L Albumin 3.5 (3.4-5.0) gm/dl Urine 03/04/20 Range/Units 01:25 Urine Color Yellow Urine Appearance Clear (Clear) Urine pH 5.0 (4.5-7.5) Ur Specific [place] 1.026 (1.000-1.030) Urine Protein Negative (Negative) Urine Glucose (UA) 2+ H (Negative) Medications Administered Current Inpatient Medications Acetaminophen (Acetaminophen 325 Mg Tab) 650 mg PO Q4H PRN PRN Reason: pain/fever Stop: 04/03/20 06:32 Aripiprazole (Aripiprazole 1 Mg/Ml Oral Soln 150 Ml Btl) 2 mg PO DAILY TIM Stop: 04/03/20 08:59 Last Admin: 03/04/20 08:35 Dose: 2 mg Documented by: Atorvastatin Calcium (Atorvastatin 40 Mg Tab) 40 mg PO DAILY TIM Stop: 04/03/20 08:59 Last Admin: 03/04/20 08:34 Dose: 40 mg Documented by: Clonazepam (Clonazepam 1 Mg Tab) 2 mg PO BID TIM Stop: 04/03/20 08:59 Last Admin: 03/04/20 08:34 Dose: 2 mg Documented by: Famotidine (Famotidine 20 Mg Tab) 20 mg PO DAILY TIM Stop: 04/03/20 08:59 Last Admin: 03/04/20 08:35 Dose: 20 mg Documented by: Promethazine HCl 6.25 mg/ (Sodium Chloride) 50.25 mls @ 201 mls/hr IV Q6H PRN PRN Reason: Nausea And Vomiting Stop: 04/03/20 06:32 Parenteral Electrolytes (Normosol-R) 1,000 mls @ 75 mls/hr IV .[id number] ONE Stop: 03/04/20 19:52 Last Admin: 03/04/20 08:34 Dose: 75 mls/hr Documented by: Influenza Virus Vaccine Quadrival (Influenza Virus Quad Vaccine 0.5 Ml Syr) 0.5 ml IM .ONCE ONE Stop: 03/04/20 20:01 Pantoprazole Sodium (Pantoprazole 40 Mg Tab) 40 mg PO DAILYBB TIM Stop: 04/04/20 06:29 Quetiapine Fumarate (Quetiapine Fumarate 200 Mg Tab) 200 mg PO HS TIM Stop: 04/03/20 20:59 Tamsulosin HCl (Tamsulosin Hcl 0.4 Mg Cap) 0.4 mg PO DAILY TIM Stop: 04/03/20 08:59 Last Admin: 03/04/20 08:35 Dose: 0.4 mg Documented by: Tramadol HCl (Tramadol Hcl 50 Mg Tablet) 25 mg PO Q4H PRN PRN Reason: Pain Stop: 04/03/20 06:32 Venlafaxine HCl (Venlafaxine Hcl Xr 150 Mg Capxr) 300 mg PO QAM TIM Stop: 04/03/20 08:59 Last Admin: 03/04/20 08:34 Dose: 300 mg Documented by:
[2020-03-04] MEDS ORDERED: QUEtiapine FUMARATE 200 MG TAB PO SCH (21:00)
[2020-03-04] MEDS: FLUTICASONE PROPIONATE NA SPR 16 GM BTL SCH (21:15)
[2020-03-04] MEDS: PSEUDOEPHEDRINE HCL 30 MG TAB PO SCH (21:15)
[2020-03-05] MEDS: PSEUDOEPHEDRINE HCL 30 MG TAB PO SCH ×3 (03:52→14:45)
[2020-03-05 06:10] LABS: Basophils # (auto) 0.03 K/uL (0-0.2); Basophils % (auto) 0.5 %; Eosinophils # (auto) 0.16 K/uL (0-0.5); Eosinophils % (auto) 2.7 %; Hematocrit (blood only) 35.5 % (42-52); Immature Granulocytes # (auto) 0.01 K/uL (0.00-0.02); Immature Granulocytes % (auto) 0.2 %; Lymphocytes # (auto) 2.31 K/uL (1.2-3.4); Mean Corpuscular Hemoglobin 24.4 pg (25-34); Mean Corpuscular Volume 78.9 fL (80-100); Mean Platelet Volume 10.7 fL (7.4-10.4); Monocytes # (auto) 0.63 K/uL (0.11-0.59); Monocytes % (auto) 10.6 %; Neutrophils # (auto) 2.79 K/uL (1.4-6.5); Platelet Count 161 K/uL (130-400); RDW Coefficient of Variation 15.9 % (11.5-14.5); RDW Standard Deviation 46.4 fL (36.4-46.3); White Blood Count 5.93 K/uL (4.8-10.8)
[2020-03-05] MEDS ORDERED: PANTOprazole 40 MG TAB PO SCH (06:30)
[2020-03-05 06:45] LABS: BUN Creatinine Ratio 6.2 (10-20); Calcium 8.4 mg/dl (8.5-10.1); Creatinine Clr Calc Pharmacy 65.8 ml/min; Est GFR (African American) 78.7; Est GFR (Non-African American) 67.9; Magnesium 2.3 mg/dl (1.8-2.4); Potassium 4.1 mmol/L (3.5-5.1)
[2020-03-05] MEDS ORDERED: FOLIC ACID 1 MG TAB PO SCH (09:00)
[2020-03-05] MEDS: VENLAFAXINE HCL XR 150 MG CAPXR PO SCH (09:17)
[2020-03-05] MEDS: FAMOTIDINE 20 MG TAB PO SCH (09:18)
[2020-03-05] MEDS: ATORVASTATIN 40 MG TAB PO SCH (09:18)
[2020-03-05] MEDS: ARIPIprazole 1 MG/ML ORAL SOLN 150 ML BTL PO SCH (09:18)
[2020-03-05] MEDS: TAMSULOSIN HCL 0.4 MG CAP PO SCH (09:18)
[2020-03-05] MEDS: FLUTICASONE PROPIONATE NA SPR 16 GM BTL SCH (09:19)
[2020-03-05] MEDS: clonazePAM 1 MG TAB PO SCH (09:26)
--- NOTE | 2020-03-05 12:55 | Discharge Summary ---
Date of Service March 05, 2020 Admission HPI Per Admitting Provider History obtained from patient, family, and records. Patient is a reliable historian. Medical history significant for hypertension, hyperlipidemia, hemophilia A, hx HCV as per records, dementia, BPH status post surgery, skin cancer status post surgery, past tobacco abuse. Patient seen at [facility] ER last week for cat scratches sustained after patient attempted to break up a fight among their pet cats as per account. Puncture wounds and bruising noted on patient's extremities as per . Patient had cat bite injury as per ER documentation which patient disputes. She insists patient injury was solely cat scratches. Patient prescribed Augmentin course. Yesterday patient had watery diarrhea symptoms associated with nausea, vomiting. Patient noted to be febrile and little sleepy upon patient's return to home from work. Transient disorientation which slowly improved as per . Achy headache symptoms. Usual clear prostatic discharge for a few months now as per patient . Patient denies black/bloody stools, joint swelling. At the ER, patient received Zosyn for sepsis. Medical History as above Surgical History : Urologic procedures, lymph node biopsy, skin cancer surgery with graft reconstruction, dental surgery Family History : Hemophilia, prostate cancer, stomach cancer Personal/Social history : Past tobacco abuse, no EtOH intake, retired from insurance work Principal Diagnosis Fever-resolved sepsis was ruled out Folate deficiency Discharge Data Allergies Allergy/AdvReac Type Severity Reaction Status Date / Time aspirin AdvReac Unknown CONTRAINDICATED Verified 03/04/20 02:45 DUE TO HEMOPHILIA DISORDER Consultations 03/04/20 03:15 ED Decision to Admit Stat Ordered Studies 03/04/20 00:57 CT abd pelvis IV con only Urgent 03/04/20 04:17 CT head/brain wo con Urgent Hospital Course (1) Fever: Uncertain etiology-less likely acute bacterial sinusitis as patient just completed a 10 day course of Augmentin. C-diff was considered but patient is without diarrhea, significant abdominal pain and is eating regular food. Viral etiology considered including flu-check PCR. Covid screen was negative. Fever has not returned off abx-no evidence of meningitis, back pain, or other clear source and he is not septic and is clinically improved. Hold off on any antibiotics at this time and monitor. Will treat symptoms with Flonase nasal spray and Sudafed decongestant. (2) Sinus pain: Treat supportively with Sudafed and Flonase for now. Continue to hydrate. IVF will be stopped this evening. (3) Pulmonary nodule: Follow with outpatient CT per guidelines. (4) Hemophilia A: No acute bleeding at this time and none recently reported. Slight dilutional anemia noted on labwork. Trend in am. (5) Major depression: Cont home medications. 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 DO Yuki Lakhani Hospitalist Discharge Plan Discharge Items Patient Disposition: Home - Self-Care Reason For Visit: FEVER,DC ISOL,COVID NEG Discharge Diagnosis: Fever-resolved sepsis was ruled out Folate deficiency Condition on Discharge: Good Activity: Resume your previous activity Non-emergency contact: Primary Care Provider Call non-emergency contact if: you have any medication questions, your symptoms worsen, your pain is not controlled and you have a fever Follow-up/Referrals: Hernandez Pritchard PA-C [Primary Care Provider] - Diet: Lactose Intolerant Addtl Attending Provider Instructions: Please take all medications as instructed on discharge list below. It is recommended that you follow-up with your primary care physician (PCP) within one week to ensure you are still feeling well after leaving the hospital and that your diarrhea doesn't continue. If it does, this will need to be checked in the lab for infection as you are at risk for something called c.difficile diarrhea with recent antibiotic use. It is recommended that you avoid dairy in your diet while the loose stools persist. Please use the Sudafed and Flonase only as needed for symptoms of nasal/sinus congestion. On your CT imaging, you were seen to have a small 5mm lung nodule. This may require follow-up imaging to ensure it is stable in size and not enlarging. Please discuss the need for further imaging with your PCP on follow-up. It was a pleasure taking care of you! Please call if you have any questions or problems. You can reach a [facility] hospitalist on duty at [facility] 24 hours a day by calling [phone]. Take care of yourself. Georgie Bradford DO [facility] Pending Studies at Discharge: No Stand-Alone Forms: My [facility] Medications and DC Order Prescriptions: New pseudoephedrine HCl [Suphedrine] 30 mg Tablet 60 mg PO Q6H PRN (Reason: nasal congestion) Qty: 10 RF: 0 fluticasone propionate 50 mcg/actuation [place],Suspension 2 spray NA DAILY PRN (Reason: nasal congestion) Qty: 9.9 RF: 0 folic acid 1 mg Tablet 1 mg PO QAM Qty: 30 RF: 1 Continued atorvastatin [Lipitor] 40 mg Tablet 40 mg PO DAILY RF: 0 donepezil 10 mg Tablet 10 mg PO DAILY RF: 0 famotidine 40 mg Tablet 20 mg PO DAILY RF: 0 venlafaxine [Effexor XR] 150 mg Capsule,Extended Release 24hr 300 mg PO QAM RF: 0 omeprazole 40 mg Capsule,Delayed Release(Dr/Ec) 40 mg PO DAILYBB RF: 0 quetiapine [Seroquel] 100 mg Tablet 200 mg PO HS RF: 0 tamsulosin [Flomax] 0.4 mg Capsule 0.4 mg PO DAILY RF: 0 clonazepam 2 mg Tablet 2 mg PO BID RF: 0 aripiprazole 2 mg Tablet 2 mg PO DAILY RF: 0 Discharge Orders: Discharge Order (Routine); Ordered 03/05/20 Ordered By: Georgie Bradford Admission Data Admit Date/Time: 03/04/20 05:24 Attending Provider: Georgie Bradford Admit Provider: Peter Golden Primary Care Provider: Hernandez Pritchard Other Providers: Peter Golden
== END 2020-03-05 16:25 | disposition home or self-care (01) ==
LOC: ED 00:30 → 3E 00:30